=== PATIENT | male | born 1980 | race Caucasian/White ===

== ENCOUNTER 2021-02-27 17:35 | Emergency (ER) | payer BC ==
[2021-02-27] MEDS ORDERED: Sodium Chloride 0.9% 1,000 ML IV ONE (19:25)
--- NOTE | 2021-02-27 19:25 | EDM.PDOC ---
ED HPI GENERAL MEDICAL PROBLEM - General Chief Complaint: General Stated Complaint: FEVER/DIZZY/RT LEG SWELLING/PAIN Time Seen by Provider: 02/27/21 18:57 Source of Information: Reports: Patient, Family () History Limitations: Reports: No Limitations - History of Present Illness INITIAL COMMENTS - FREE TEXT/NARRATIVE: Mr. Bolanos is a very pleasant 40-year-old gentleman who now presents the ED stating that he felt fatigued, lightheaded, and nauseated when he woke up this morning. He was able to go to work, but when he returned home from work around 14:00, he was found to have a temperature of 100.3 degrees, and a BP of 100/94. At around that time, he noticed anterior right leg erythema, and pain to his proximal medial right thigh. The pain is made worse when he ambulates. His gave him 2 tablets of Aleve. No prior similar symptoms. The patient denies known injury to his right lower extremity. He denies any recent chest pain or discomfort, palpitations, or dyspnea. Here in the ED, the patient is found to be hemodynamically stable, afebrile, saturating 99% on room air. He appears to be comfortable while semirecumbent on the gurney, in no acute distress. Prior to this morning, the patient denies having a recent fever, chills, sore throat, ear pain, nasal or sinus congestion, cough, dyspnea, chest pain, palpitations, nausea, vomiting, constipation, diarrhea, abdominal pain, urinary symptoms, recent weight gain or weight loss, recent bloody bowel movements or black bowel movements, recent joint aches, headaches, or rashes. The patient does not have a PCP. He has not been vaccinated for COVID. Right Leg Pain Score (Numeric/FACES): 5 - Related Data Allergies Allergy/AdvReac Type Severity Reaction Status Date / Time No Known Allergies Allergy Verified 02/27/21 18:17 Home Meds: Home Meds cephALEXin [Keflex] 1 cap PO Q8H #30 cap 02/27/21 [Rx] Past Medical History - Past Surgical History HEENT Surgical History: Reports: Oral Surgery (dental extractions) Social & Family History - Tobacco Use Tobacco Use Status *Q: Current Every Day Tobacco User Years of Tobacco use: 24 Packs/Tins Daily: 0.5 Tobacco Use Comment: Started smoking 1996 - Caffeine Use Caffeine Use: Reports: Soda - Alcohol Use Alcohol Use History: Yes Alcohol Use Frequency: Socially - Recreational Drug Use Recreational Drug Use: No - Living Situation & Occupation Living situation: Reports: , with Spouse Occupation: Employed (airport shuttle driver) ED ROS GENERAL - Review of Systems Review Of Systems: Comprehensive ROS is negative, except as noted in HPI. ED EXAM, GENERAL - Physical Exam Exam: See Below Exam Limited By: No Limitations General Appearance: Alert, WD/WN, No Apparent Distress Eye Exam: Bilateral Eye: EOMI, Normal Inspection Ears: Normal External Exam, Hearing Grossly Normal Nose: Normal Inspection Throat/Mouth: Normal Inspection, Normal Lips, Normal Voice, No Airway Compromise Head: Atraumatic, Normocephalic Neck: Normal Inspection, Full Range of Motion Respiratory/Chest: No Respiratory Distress, Lungs Clear, Normal Breath Sounds, No Accessory Muscle Use Cardiovascular: Normal Peripheral Pulses, Regular Rate, Rhythm, No Gallop, No JVD, No Murmur, No Rub Peripheral Pulses: 3+: Radial (L), Radial (R), Femoral (L), Femoral (R), Dorsalis Pedis (L), Dorsalis Pedis (R) GI/Abdominal: Normal Bowel Sounds, Soft, Non-Tender, No Organomegaly, No Distention, No Abnormal Bruit, No Mass Back Exam: Normal Inspection, Full Range of Motion, NT Extremities: Normal Range of Motion, Normal Capillary Refill, Other (There is a rectangular-shaped area of erythema to the anterior right leg, consistent with a sunburn. This area is mildly tender. Right mid-calf circumference 37.5 cm, left 35.0 cm. Trace pretibial edema bilaterally. Neurovascular status of the right lower extremity is intact.) Neurological: Alert, Oriented, Normal Cognition, No Motor/Sensory Deficits Psychiatric: Normal Affect Skin Exam: Warm, Dry, Intact, Normal Color, No Rash Course - Vital Signs Last Recorded V/S: Last Vital Signs Temp 36.6 C 02/27/21 18:37 Pulse 88 02/27/21 18:37 Resp 16 02/27/21 18:37 BP 100/63 02/27/21 18:37 Pulse Ox 98 02/27/21 18:37 Orthostatic Blood Pressure [ 100/65 Standing] Orthostatic Blood Pressure [ 105/69 Sitting] Orthostatic Blood Pressure [ 98/66 Supine] - Orders/Labs/Meds Orders: Active Orders 24 hr Category Date Time Status Orthostatic Vital Signs [RC] STAT Care 02/27/21 19:14 Active BLOOD CULTURE [MREF] Stat Lab 02/27/21 19:18 Ordered Magnesium Sulfate/Water [Magnesium Sulfate in Water 4 Med 02/27/21 20:14 Active GM/50 ML] 4 gm Premix Bag 1 bag IV ONETIME Blood Culture x2 Reflex Set [OM.PC] Stat Oth 02/27/21 19:15 Ordered Medication Orders Magnesium Sulfate 4 gm/ Premix 50 mls @ 12.5 mls/hr IV ONETIME ONE Stop: 02/28/21 00:13 Last Admin: 02/27/21 20:25 Dose: 12.5 mls/hr Documented by: ISA Labs: Laboratory Tests 02/27/21 02/27/21 02/27/21 Range/Units 19:21 19:21 19:21 WBC 22.29 H (4.23-9.07) K/mm3 RBC 4.75 (4.63-6.08) M/mm3 Hgb 14.9 (13.7-17.5) gm/dl Hct 43.4 (40.1-51.0) % MCV 91.4 (79.0-92.2) fl MCH 31.4 (25.7-32.2) pg MCHC 34.3 (32.2-35.5) g/dl RDW Std Deviation 42.4 (35.1-43.9) fL Plt Count 177 (163-337) K/mm3 MPV 11.0 (9.4-12.3) fl Neutrophils % (Manual) 86 H (40-60) % Band Neutrophils % 0 (0-10) % Lymphocytes % (Manual) 7 L (20-40) % Atypical Lymphs % 0 % Monocytes % (Manual) 7 (2-10) % Eosinophils % (Manual) 0 L (0.8-7.0) % Basophils % (Manual) 0 L (0.2-1.2) Platelet Estimate Adequate RBC Morph Comment Normal D-Dimer, Quantitative 0.50 (0.19-0.50) mg/L Sodium 136 (136-145) mEq/L Potassium 4.1 (3.5-5.1) mEq/L Chloride 101 (98-107) mEq/L Carbon Dioxide 27 (21-32) mEq/L Anion Gap 12.1 (5-15) BUN 12 (7-18) mg/dL Creatinine 1.5 H (0.7-1.3) mg/dL Est Cr Clr Drug Dosing 58.48 mL/min Estimated GFR (MDRD) 52 (>60) mL/min BUN/Creatinine Ratio 8.0 L (14-18) Glucose 120 H (70-99) mg/dL Lactic Acid (0.4-2.0) mmol/L Calcium 8.5 (8.5-10.1) mg/dL Magnesium 1.5 L (1.8-2.4) mg/dL Total Bilirubin 0.6 (0.2-1.0) mg/dL AST 10 L (15-37) U/L ALT 20 (16-63) U/L Alkaline Phosphatase 70 (46-116) U/L Creatine Kinase 49 (39-308) U/L Troponin I < 0.017 (0.00-0.056) ng/mL C-Reactive Protein 17.0 H* (<1.0) mg/dL Total Protein 6.7 (6.4-8.2) g/dl Albumin 3.4 (3.4-5.0) g/dl Globulin 3.3 gm/dL Albumin/Globulin Ratio 1.0 (1-2) Urine Color (Yellow) Urine Appearance (Clear) Urine pH (5.0-8.0) Ur Specific Republic (1.005-1.030) Urine Protein (Negative) Urine Glucose (UA) (Negative) Urine Ketones (Negative) Urine Occult Blood (Negative) Urine Nitrite (Negative) Urine Bilirubin (Negative) Urine Urobilinogen (0.2-1.0) Ur Leukocyte Esterase (Negative) Urine RBC (0-5) /hpf Urine WBC (0-5) /hpf Ur Squamous Epith Cells (0-5) /hpf Urine Bacteria (FEW) /hpf Urine Mucus (FEW) /hpf SARS-CoV-2 RNA (KEVIN) (NEGATIVE) 02/27/21 02/27/21 02/27/21 Range/Units 19:25 19:28 19:33 WBC (4.23-9.07) K/mm3 RBC (4.63-6.08) M/mm3 Hgb (13.7-17.5) gm/dl Hct (40.1-51.0) % MCV (79.0-92.2) fl MCH (25.7-32.2) pg MCHC (32.2-35.5) g/dl RDW Std Deviation (35.1-43.9) fL Plt Count (163-337) K/mm3 MPV (9.4-12.3) fl Neutrophils % (Manual) (40-60) % Band Neutrophils % (0-10) % Lymphocytes % (Manual) (20-40) % Atypical Lymphs % % Monocytes % (Manual) (2-10) % Eosinophils % (Manual) (0.8-7.0) % Basophils % (Manual) (0.2-1.2) Platelet Estimate RBC Morph Comment D-Dimer, Quantitative (0.19-0.50) mg/L Sodium (136-145) mEq/L Potassium (3.5-5.1) mEq/L Chloride (98-107) mEq/L Carbon Dioxide (21-32) mEq/L Anion Gap (5-15) BUN (7-18) mg/dL Creatinine (0.7-1.3) mg/dL Est Cr Clr Drug Dosing mL/min Estimated GFR (MDRD) (>60) mL/min BUN/Creatinine Ratio (14-18) Glucose (70-99) mg/dL Lactic Acid 1.9 (0.4-2.0) mmol/L Calcium (8.5-10.1) mg/dL Magnesium (1.8-2.4) mg/dL Total Bilirubin (0.2-1.0) mg/dL AST (15-37) U/L ALT (16-63) U/L Alkaline Phosphatase (46-116) U/L Creatine Kinase (39-308) U/L Troponin I (0.00-0.056) ng/mL C-Reactive Protein (<1.0) mg/dL Total Protein (6.4-8.2) g/dl Albumin (3.4-5.0) g/dl Globulin gm/dL Albumin/Globulin Ratio (1-2) Urine Color Yellow (Yellow) Urine Appearance Clear (Clear) Urine pH 6.0 (5.0-8.0) Ur Specific Republic 1.020 (1.005-1.030) Urine Protein Negative (Negative) Urine Glucose (UA) Negative (Negative) Urine Ketones Negative (Negative) Urine Occult Blood Negative (Negative) Urine Nitrite Negative (Negative) Urine Bilirubin Negative (Negative) Urine Urobilinogen 0.2 (0.2-1.0) Ur Leukocyte Esterase Negative (Negative) Urine RBC 0-5 (0-5) /hpf Urine WBC 0-5 (0-5) /hpf Ur Squamous Epith Cells 0-5 (0-5) /hpf Urine Bacteria Few (FEW) /hpf Urine Mucus Few (FEW) /hpf SARS-CoV-2 RNA (KEVIN) Negative (NEGATIVE) Meds: Medications Generic Name Dose Route Start Last Admin Trade Name Freq PRN Reason Stop Dose Admin Magnesium Sulfate 4 gm/ Premix 50 mls @ 12.5 mls/hr 02/27/21 20:14 02/27/21 20:25 IV 02/28/21 00:13 12.5 mls/hr ONETIME ONE Administration Discontinued Medications Generic Name Dose Route Start Last Admin Trade Name Freq PRN Reason Stop Dose Admin Sodium Chloride 1,000 mls @ 999 mls/hr 02/27/21 19:25 02/27/21 19:49 Normal Saline IV 02/27/21 20:25 999 mls/hr ONETIME ONE Administration - Re-Assessments/Exams Free Text/Narrative Re-Assessment/Exam: 02/27/21 19:20 As above, the patient woke with fatigue, lightheadedness, and nausea this morning, then developed a temperature up to 100.3 degrees 2:00 this afternoon, at which time he also noticed that his anterior right leg was erythematous, and that he had pain to his upper medial right thigh. The pain is made worse with weightbearing. He took some Aleve just after 14:00 this afternoon, but continues to feel poorly. He expressly denies experiencing chest pain or discomfort, palpitations, or dyspnea. At triage, the patient's vital signs were stable, but during my examination, his systolic blood pressure was down in the 90s. On examination, the anterior aspect of the patient's right leg is erythematous, but in a rectangular pattern that looks a lot like a sunburn, but at the same time, his left leg is unaffected. The remainder of his physical exam is unremarkable. I have ordered a work-up that includes orthostatics, numerous blood tests, 2 sets of blood cultures, a urinalysis (to look for casts), a swab for the SARS-CoV-2 virus, and a Doppler ultrasound of the right lower extremity to look for DVT. If the patient's D-dimer returns elevated, I will add a CT angiogram of the chest. In the meantime, the patient will be given IV fluid, even if he is not orthostatic. The patient declined an offer for pain medication. 02/27/21 20:15 The patient is not orthostatic. The patient's CMP is remarkable for a Cr elevated at 1.5, with a BUN normal at 12, and mild hyperglycemia of 120, with the remainder of his CMP being unremarkable. His magnesium level is depressed at 1.5. His troponin is undetectably low. His CPK is within normal limits at 49. His D-dimer is within normal limits at 0.50. His CRP is significantly elevated at 17.0. Results of his CBC, lactic acid level, swab for the SARS-CoV-2 virus, and Doppler ultrasound of the right lower extremity are still pending. Based on the above, I have ordered a 4 g Mg-rider. 02/27/21 20:26 Doppler ultrasound of the right lower extremity is read by Dr. Gamez as: 1. No findings of deep venous thrombosis within the right lower extremity or within the left common femoral vein. 2. Inguinal lymph nodes which are most likely normal but please correlate clinically. The patient's CBC is remarkable for leukocytosis of 22.29, but with 0% bandemia, and the remainder of his CBC being unremarkable. 02/27/21 21:29 The patient's lactic acid level is within normal limits at 1.9. His swab for the SARS-CoV-2 virus is negative. 02/27/21 21:39 Test results discussed with the patient, his , and another lady who has since come to the ED. As best I can tell, the patient is suffering from right leg cellulitis with, for reasons unclear, some systemic symptoms. I will start him on oral Keflex, and discharge him home (once his Mg-rider finishes infusing) with a prescription to complete a 10-day course. I will refer him to the clinic for follow-up. Departure - Departure Time of Disposition: 21:41 Disposition: Home, Self-Care 01 Condition: Good Clinical Impression: Cellulitis of right leg, Hypomagnesemia - Discharge Information *PRESCRIPTION DRUG MONITORING PROGRAM REVIEWED*: Not Applicable *COPY OF PRESCRIPTION DRUG MONITORING REPORT IN PATIENT ADAMA: Not Applicable Referrals: PCP,None [Primary Care Provider] - Fannie Romeo NP [Nurse Practitioner] - Forms: ED Department Discharge Additional Instructions: You were seen in the emergency room after developing fatigue, lightheadedness, and nausea this morning, then redness, swelling, and pain to your right leg, along with a low-grade fever earlier this afternoon. Work-up in the ER included positional blood pressure checks, numerous blood sotero ts, 2 sets of blood cultures, a urinalysis, a swab for the SARS-CoV-2 virus, and a Doppler ultrasound of your right lower extremity. Your white blood cell count was found to be elevated, as was your CRP, both suggestive of an infection, and your magnesium level was low at 1.5. The Doppler ultrasound was negative for a blood clot in your leg. Based on your history, physical exam, and ER tests, the cause of your symptoms is most likely due to cellulitis - a skin infection - of the right leg. You were given IV magnesium replacement in the ER. You have been started on the antibiotic Keflex, and a prescription for Keflex has been sent to [facility]. Take 1 capsule of Keflex every 8 hours, starting tomorrow morning, 02/28/2021, as prescribed. Finish the entire prescription unless told otherwise by a doctor. As discussed, you can consider marking the edges of the redness of your leg after 24 hours. Beyond that, the redness should recess. If it continues to expand beyond the pen marlen, you will need to be reevaluated. We recommend that you follow-up with Fannie Romeo NP, or one of the other providers in the clinic, later this week. You can establish that provider as a PCP. If any other problems, please do not hesitate to return to the ER. Sepsis Event Note (ED) - Evaluation Sepsis Screening Result: No Definite Risk - Focused Exam Vital Signs: Vital Signs Temp Pulse Resp BP Pulse Ox 02/27/21 18:37 36.6 C 88 16 100/63 98 02/27/21 18:14 36.2 C 98 16 121/63 99 - My Orders Last 24 Hours: My Active Orders 02/27/21 19:14 Orthostatic Vital Signs [RC] STAT 02/27/21 19:15 Blood Culture x2 Reflex Set [OM.PC] Stat 02/27/21 19:18 BLOOD CULTURE [MREF] Stat 02/27/21 20:14 Magnesium Sulfate/Water [Magnesium Sulfate in Water 4 GM/50 ML] 4 gm Premix Bag 1 bag IV ONETIME - Assessment/Plan Last 24 Hours: My Active Orders 02/27/21 19:14 Orthostatic Vital Signs [RC] STAT 02/27/21 19:15 Blood Culture x2 Reflex Set [OM.PC] Stat 02/27/21 19:18 BLOOD CULTURE [MREF] Stat 02/27/21 20:14 Magnesium Sulfate/Water [Magnesium Sulfate in Water 4 GM/50 ML] 4 gm Premix Bag 1 bag IV ONETIME
[2021-02-27] MEDS ORDERED: Magnesium Sulfate/Water 4 GM in Premix Bag 1 BAG IV ONE (20:14)
--- NOTE | 2021-02-27 20:18 | US ---
Right lower extremity deep venous ultrasound: Duplex and color Doppler evaluation was obtained of the right common femoral, proximal greater saphenous, superficial femoral, popliteal, posterior tibial and peroneal veins. Left common femoral vein was also evaluated. Comparison: No prior venous study is available. Findings: Visualized veins show normal compression, phasic flow and augmentation. Multiple right inguinal lymph nodes are seen which are most likely within normal limits, please correlate clinically. Impression: 1. No findings of deep venous thrombosis within the right lower extremity or within the left common femoral vein. 2. Inguinal lymph nodes which are most likely normal but please correlate clinically. Diagnostic code #1
[2021-02-27] MEDS ORDERED: Cephalexin 500 MG Cap PO STA (21:39)
== END 2021-02-28 00:18 | disposition home or self-care (01) ==
LOC: JD.ED 17:35
DX: L03.115 Cellulitis of right lower limb (principal); E83.42 Hypomagnesemia; R79.82 Elevated C-reactive protein (CRP); D72.829 Elevated white blood cell count, unspecified; F17.200 Nicotine dependence, unspecified, uncomplicated; Z20.822 Contact with and (suspected) exposure to COVID-19
CPT/HCPCS: 36415; 80053; 81001; 82550; 83605; 83735; 84484; 85007; 85027; 85379; 86140; 87040; 87635; 93971; 96365; 96366; 99284; A9270; J3475; J7030; U0002

== ENCOUNTER 2023-01-30 06:21 | Inpatient (IN) | payer BC, OTHER ==
[2023-01-30] MEDS ORDERED: cefTRIAXone 2 GM in Sodium Chloride 0.9% 100 ML IV ONE (07:02)
[2023-01-30] MEDS ORDERED: Doxycycline 100 MG in Sodium Chloride 0.9% 100 ML IV ONE (07:03)
[2023-01-30] MEDS ORDERED: Acetaminophen 325 MG Tab PO ONE (07:04)
[2023-01-30] MEDS ORDERED: Ketorolac 30 MG/ML SDV IVPUSH SCH (07:15)
[2023-01-30] MEDS ORDERED: Dextrose 5%-0.9% NaCl 1,000 ML IV SCH ×2 (07:15)
[2023-01-30 07:40] LABS: HEMATOCRIT 41.5 % (40.1-51.0); HEMOGLOBIN 14.3 gm/dl (13.7-17.5); MEAN CORPUSCULAR HEMOGLOBIN 31.9 pg (25.7-32.2); MEAN CORPUSCULAR HGB CONC 34.5 g/dl (32.2-35.5); MEAN CORPUSCULAR VOLUME 92.6 fl (79.0-92.2); MEAN PLATELET VOLUME 10.6 fl (9.4-12.3); PLATELET COUNT,PLT 186 K/mm3 (163-337); RED BLOOD CELL COUNT 4.48 M/mm3 (4.63-6.08); WHITE BLOOD CELL COUNT,WBC 19.85 K/mm3 (4.23-9.07)
[2023-01-30 08:07] LABS: BAND PERCENT MAN 7 % (0-10); BASOPHILS PERCENT MAN 0 (0.2-1.2); EOSINOPHILS PERCENT MAN 0 % (0.8-7.0); LYMPHOCYTES % ATYPICAL MANUAL 0 %; LYMPHOCYTES PERCENT MAN 3 % (20-40); MONOCYTES PERCENT MAN 3 % (2-10)
[2023-01-30 08:08] LABS: A/G RATIO 0.7 (1-2); ALBUMIN 2.8 g/dl (3.4-5.0); ANION GAP 13.1 (5-15); BILIRUBIN TOTAL 0.5 mg/dL (0.2-1.0); BUN/CREATININE RATIO 11.1 (14-18); CALCIUM 8.3 mg/dL (8.5-10.1); CREATININE 1.8 mg/dL (0.7-1.3); EST CRCL DRUG DOSING (CG) 47.75 mL/min; POTASSIUM,K 4.1 mEq/L (3.5-5.1); PROTEIN TOTAL,TP 6.6 g/dl (6.4-8.2)
[2023-01-30 08:09] LABS: PLATELET COUNT ESTIMATE ADEQUATE; STOMATOCYTES 1+ SLIGHT; TOXIC GRANULATION 1+ SLIGHT
[2023-01-30 08:18] LABS: C-REACTIVE PROTEIN 29.2 mg/dL (<1.0)
[2023-01-30] MEDS ORDERED: Sodium Chloride 0.9% 1,000 ML IV SCH (09:15)
[2023-01-30] MEDS ORDERED: Ondansetron 4 MG/2 ML SDV IV PRN (12:13)
[2023-01-30] MEDS ORDERED: Docusate Sodium 100 MG Cap PO PRN (12:13)
[2023-01-30] MEDS: Acetaminophen 325 MG Tab PO PRN ×2 (13:02→20:28)
[2023-01-30] MEDS: Sodium Chloride 0.9% 1,000 ML IV SCH ×2 (13:03→23:09)
[2023-01-30] MEDS: Enoxaparin 40 MG/0.4 ML Syringe SUBCUT SCH (13:10)
[2023-01-30] MEDS: Nicotine 14 MG/24 Hr Patch TRDERM SCH ×2 (13:10→13:17)
[2023-01-30] MEDS ORDERED: BUTENAFINE HCL TRDERM PRN (15:05)
[2023-01-30] MEDS: Doxycycline 100 MG in Sodium Chloride 0.9% 100 ML IV SCH (18:51)
[2023-01-30] MEDS: Clotrimazole 1% Crm 30 GM Tube TOP SCH (20:36)
[2023-01-30] MEDS ORDERED: Cholecalciferol (Vitamin D3) 25 MCG Tab PO SCH (21:00)
[2023-01-30] MEDS ORDERED: Venlafaxine 37.5 MG Cap.ER PO SCH (21:00)
[2023-01-31 06:09] LABS: BASOPHILS ABSOLUTE AUTO 0.01 K/mm3 (0.01-0.08); BASOPHILS PERCENT AUTO 0.1 % (0.1-1.2); EOSINOPHILS PERCENT AUTO 0 (0.8-7.0); HEMATOCRIT 38.2 % (40.1-51.0); IMMATURE GRAN ABSOLUTE AUTO 0.05 K/mm3 (0.00-0.10); IMMATURE GRAN PERCENT AUTO 0.3 % (<=1.0); LYMPHOCYTES ABSOLUTE AUTO 0.72 K/mm3 (1.32-3.57); LYMPHOCYTES PERCENT AUTO 4.5 % (21.8-53.1); MEAN CORPUSCULAR HEMOGLOBIN 31.8 pg (25.7-32.2); MEAN CORPUSCULAR VOLUME 93.4 fl (79.0-92.2); MEAN PLATELET VOLUME 11.4 fl (9.4-12.3); MONOCYTES ABSOLUTE AUTO 0.71 K/mm3 (0.30-0.82); MONOCYTES PERCENT AUTO 4.5 % (5.3-12.2); NEUTROPHILS ABSOLUTE AUTO 14.42 K/mm3 (1.78-5.38); NEUTROPHILS PERCENT AUTO 90.6 % (34.0-67.9); PLATELET COUNT,PLT 147 K/mm3 (163-337); RED BLOOD CELL COUNT 4.09 M/mm3 (4.63-6.08); WHITE BLOOD CELL COUNT,WBC 15.91 K/mm3 (4.23-9.07)
[2023-01-31] MEDS: cefTRIAXone 2 GM in Sodium Chloride 0.9% 100 ML IV SCH (06:17)
[2023-01-31] MEDS: Doxycycline 100 MG in Sodium Chloride 0.9% 100 ML IV SCH (06:18)
[2023-01-31 06:36] LABS: ANION GAP 12.6 (5-15); BUN/CREATININE RATIO 11.5 (14-18); CALCIUM 7.9 mg/dL (8.5-10.1); CREATININE 1.3 mg/dL (0.7-1.3); EST CRCL DRUG DOSING (CG) 66.12 mL/min; MAGNESIUM 1.6 mg/dL (1.8-2.4); POTASSIUM,K 3.6 mEq/L (3.5-5.1)
[2023-01-31 06:45] LABS: SLIDE REVIEW ABNORMAL SMEAR
[2023-01-31 07:01] LABS: C-REACTIVE PROTEIN 44.9 mg/dL (<1.0)
[2023-01-31] MEDS ORDERED: Magnesium Sulfate/Water 2 GM in Premix Bag 1 BAG IV ONE (07:59)
[2023-01-31] MEDS: Enoxaparin 40 MG/0.4 ML Syringe SUBCUT SCH (08:34)
[2023-01-31] MEDS: Clotrimazole 1% Crm 30 GM Tube TOP SCH ×2 (08:41→20:33)
[2023-01-31] MEDS: Nicotine 14 MG/24 Hr Patch TRDERM SCH (10:06)
[2023-01-31] MEDS ORDERED: Sodium Chloride 0.9% 500 ML IV ONE (10:30)
[2023-01-31] MEDS: Acetaminophen 325 MG Tab PO PRN (13:15)
[2023-01-31] MEDS: Sodium Chloride 0.9% 1,000 ML IV SCH ×2 (13:17→23:45)
[2023-01-31] MEDS: oxyCODONE 5 MG Tab PO PRN (20:27)
[2023-01-31] MEDS: traZODone 50 MG Tab PO PRN (20:28)
[2023-02-01] MEDS: oxyCODONE 5 MG Tab PO PRN ×4 (04:07→19:36)
[2023-02-01 05:58] LABS: BASOPHILS ABSOLUTE AUTO 0.01 K/mm3 (0.01-0.08); BASOPHILS PERCENT AUTO 0.1 % (0.1-1.2); EOSINOPHILS ABSOLUTE AUTO 0.01 K/mm3 (0.04-0.54); EOSINOPHILS PERCENT AUTO 0.1 (0.8-7.0); HEMATOCRIT 35.2 % (40.1-51.0); IMMATURE GRAN ABSOLUTE AUTO 0.04 K/mm3 (0.00-0.10); IMMATURE GRAN PERCENT AUTO 0.3 % (<=1.0); LYMPHOCYTES ABSOLUTE AUTO 0.83 K/mm3 (1.32-3.57); LYMPHOCYTES PERCENT AUTO 6.5 % (21.8-53.1); MEAN CORPUSCULAR HEMOGLOBIN 31.9 pg (25.7-32.2); MEAN CORPUSCULAR HGB CONC 34.1 g/dl (32.2-35.5); MEAN CORPUSCULAR VOLUME 93.6 fl (79.0-92.2); MEAN PLATELET VOLUME 11.2 fl (9.4-12.3); MONOCYTES ABSOLUTE AUTO 0.96 K/mm3 (0.30-0.82); MONOCYTES PERCENT AUTO 7.6 % (5.3-12.2); NEUTROPHILS ABSOLUTE AUTO 10.83 K/mm3 (1.78-5.38); NEUTROPHILS PERCENT AUTO 85.4 % (34.0-67.9); PLATELET COUNT,PLT 158 K/mm3 (163-337); RED BLOOD CELL COUNT 3.76 M/mm3 (4.63-6.08); WHITE BLOOD CELL COUNT,WBC 12.68 K/mm3 (4.23-9.07)
[2023-02-01] MEDS: cefTRIAXone 2 GM in Sodium Chloride 0.9% 100 ML IV SCH (06:23)
[2023-02-01 06:41] LABS: ANION GAP 10.6 (5-15); BUN/CREATININE RATIO 7.3 (14-18); CALCIUM 7.7 mg/dL (8.5-10.1); CREATININE 1.1 mg/dL (0.7-1.3); EST CRCL DRUG DOSING (CG) 78.14 mL/min; MAGNESIUM 1.8 mg/dL (1.8-2.4); POTASSIUM,K 3.6 mEq/L (3.5-5.1); VANCOMYCIN RANDOM 10.2 ug/mL
[2023-02-01] MEDS: Enoxaparin 40 MG/0.4 ML Syringe SUBCUT SCH (08:34)
[2023-02-01] MEDS: Nicotine 14 MG/24 Hr Patch TRDERM SCH (08:34)
[2023-02-01] MEDS: Clotrimazole 1% Crm 30 GM Tube TOP SCH (08:34)
[2023-02-01] MEDS: Acetaminophen 325 MG Tab PO PRN ×3 (10:25→19:35)
[2023-02-01] MEDS: traZODone 50 MG Tab PO PRN (19:35)
[2023-02-02] MEDS: Clotrimazole 1% Crm 30 GM Tube TOP SCH ×3 (00:02→20:10)
[2023-02-02 06:41] LABS: BASOPHILS ABSOLUTE AUTO 0.02 K/mm3 (0.01-0.08); BASOPHILS PERCENT AUTO 0.2 % (0.1-1.2); EOSINOPHILS ABSOLUTE AUTO 0.09 K/mm3 (0.04-0.54); EOSINOPHILS PERCENT AUTO 0.9 (0.8-7.0); HEMATOCRIT 37.4 % (40.1-51.0); HEMOGLOBIN 12.7 gm/dl (13.7-17.5); IMMATURE GRAN ABSOLUTE AUTO 0.06 K/mm3 (0.00-0.10); IMMATURE GRAN PERCENT AUTO 0.6 % (<=1.0); LYMPHOCYTES ABSOLUTE AUTO 0.74 K/mm3 (1.32-3.57); LYMPHOCYTES PERCENT AUTO 7.3 % (21.8-53.1); MEAN CORPUSCULAR HEMOGLOBIN 31.5 pg (25.7-32.2); MEAN CORPUSCULAR VOLUME 92.8 fl (79.0-92.2); MEAN PLATELET VOLUME 10.8 fl (9.4-12.3); MONOCYTES ABSOLUTE AUTO 1.01 K/mm3 (0.30-0.82); NEUTROPHILS ABSOLUTE AUTO 8.23 K/mm3 (1.78-5.38); PLATELET COUNT,PLT 191 K/mm3 (163-337); RED BLOOD CELL COUNT 4.03 M/mm3 (4.63-6.08); WHITE BLOOD CELL COUNT,WBC 10.15 K/mm3 (4.23-9.07)
[2023-02-02] MEDS: cefTRIAXone 2 GM in Sodium Chloride 0.9% 100 ML IV SCH (06:59)
[2023-02-02 07:01] LABS: ANION GAP 10.5 (5-15); BUN/CREATININE RATIO 5.6 (14-18); CALCIUM 8.1 mg/dL (8.5-10.1); CREATININE 0.9 mg/dL (0.7-1.3); EST CRCL DRUG DOSING (CG) 95.5 mL/min; MAGNESIUM 1.8 mg/dL (1.8-2.4); POTASSIUM,K 3.5 mEq/L (3.5-5.1)
[2023-02-02 07:13] LABS: C-REACTIVE PROTEIN 21.8 mg/dL (<1.0)
[2023-02-02] MEDS: oxyCODONE 5 MG Tab PO PRN ×4 (08:51→23:00)
[2023-02-02] MEDS: Enoxaparin 40 MG/0.4 ML Syringe SUBCUT SCH (08:52)
[2023-02-02] MEDS: Nicotine 14 MG/24 Hr Patch TRDERM SCH (08:53)
[2023-02-02] MEDS: Acetaminophen 325 MG Tab PO PRN ×3 (09:44→20:07)
[2023-02-02] MEDS: VANCOmycin 1.25 GM/250 ML 1.25 GM in Premix Bag 1 BAG IV SCH ×2 (11:34→22:59)
[2023-02-02] MEDS: traZODone 50 MG Tab PO PRN (20:10)
[2023-02-03] MEDS: oxyCODONE 5 MG Tab PO PRN ×2 (04:21→10:27)
[2023-02-03] MEDS: cefTRIAXone 2 GM in Sodium Chloride 0.9% 100 ML IV SCH (06:07)
[2023-02-03 06:08] LABS: BASOPHILS ABSOLUTE AUTO 0.02 K/mm3 (0.01-0.08); BASOPHILS PERCENT AUTO 0.2 % (0.1-1.2); EOSINOPHILS ABSOLUTE AUTO 0.13 K/mm3 (0.04-0.54); EOSINOPHILS PERCENT AUTO 1.4 (0.8-7.0); HEMATOCRIT 36.1 % (40.1-51.0); HEMOGLOBIN 12.3 gm/dl (13.7-17.5); IMMATURE GRAN ABSOLUTE AUTO 0.06 K/mm3 (0.00-0.10); IMMATURE GRAN PERCENT AUTO 0.6 % (<=1.0); LYMPHOCYTES ABSOLUTE AUTO 0.81 K/mm3 (1.32-3.57); LYMPHOCYTES PERCENT AUTO 8.7 % (21.8-53.1); MEAN CORPUSCULAR HEMOGLOBIN 31.3 pg (25.7-32.2); MEAN CORPUSCULAR HGB CONC 34.1 g/dl (32.2-35.5); MEAN CORPUSCULAR VOLUME 91.9 fl (79.0-92.2); MEAN PLATELET VOLUME 9.9 fl (9.4-12.3); MONOCYTES ABSOLUTE AUTO 0.95 K/mm3 (0.30-0.82); MONOCYTES PERCENT AUTO 10.2 % (5.3-12.2); NEUTROPHILS ABSOLUTE AUTO 7.37 K/mm3 (1.78-5.38); NEUTROPHILS PERCENT AUTO 78.9 % (34.0-67.9); PLATELET COUNT,PLT 216 K/mm3 (163-337); RED BLOOD CELL COUNT 3.93 M/mm3 (4.63-6.08); WHITE BLOOD CELL COUNT,WBC 9.34 K/mm3 (4.23-9.07)
[2023-02-03 06:23] LABS: ANION GAP 10.4 (5-15); CALCIUM 7.9 mg/dL (8.5-10.1); EST CRCL DRUG DOSING (CG) 85.95 mL/min; MAGNESIUM 1.7 mg/dL (1.8-2.4); POTASSIUM,K 3.4 mEq/L (3.5-5.1)
[2023-02-03 06:39] LABS: C-REACTIVE PROTEIN 20.3 mg/dL (<1.0)
[2023-02-03] MEDS ORDERED: Potassium Chloride 20 MEQ Tab.ER PO ONE (08:34)
[2023-02-03] MEDS ORDERED: Magnesium Sulfate (4.06 MEQ/ML) 5 GM/10 ML SDV IV ONE (08:45)
[2023-02-03] MEDS ORDERED: Magnesium Sulfate/Water 2 GM in Premix Bag 1 BAG IV ONE (09:00)
[2023-02-03] MEDS: Clotrimazole 1% Crm 30 GM Tube TOP SCH (09:02)
[2023-02-03] MEDS: Nicotine 14 MG/24 Hr Patch TRDERM SCH (09:02)
[2023-02-03] MEDS: Enoxaparin 40 MG/0.4 ML Syringe SUBCUT SCH (09:04)
[2023-02-03] MEDS: VANCOmycin 1.25 GM/250 ML 1.25 GM in Premix Bag 1 BAG IV SCH (10:32)
== END 2023-02-03 12:29 | disposition home or self-care (01) | DRG 872 ==
LOC: JD.ED 06:21 → UNDOADMIN 10:24 → JD.ICU 10:24
PROVIDERS: ADMIT Hospitalist; ATTEND Hospitalist
DX: A41.9 Sepsis, unspecified organism (principal); L03.115 Cellulitis of right lower limb; N17.9 Acute kidney failure, unspecified; R65.20 Severe sepsis without septic shock; B35.3 Tinea pedis; E83.42 Hypomagnesemia; F17.210 Nicotine dependence, cigarettes, uncomplicated; R59.0 Localized enlarged lymph nodes; Z79.899 Other long term (current) drug therapy; Z98.890 Other specified postprocedural states
CPT/HCPCS: 36415; 80048; 80053; 80202; 83605; 83735; 85007; 85025; 85027; 86140; 87040; 93971-26-RT; 93971-RT; 96361; 96365; 96367; 96375; 99222; 99232; 99239; 99284-25; 99285; A9270-GY; J0696; J1650; J1885; J3370; J3475; J3490; J7030; J7042; J7050